=== PATIENT | male | born 1985 | race Caucasian/White ===

== ENCOUNTER 2024-03-04 09:23 | Inpatient (IN) | payer OTHER ==
--- NOTE | 2024-03-04 10:39 | ED ---
Skin/Abscess/FB HPI - General Chief complaint: Skin/Abscess/Foreign Body Stated complaint: Abrasion in groin area Time Seen by Provider: 03/04/24 10:36 Source: patient, family, RN notes reviewed Mode of arrival: ambulatory Limitations: no limitations - History of Present Illness Initial comments: 38 year-old male presenting with right groin abscess. States his PCP drained the abscess 2 days ago and started him on Bactrim. He states that the infection is behind his scrotum extending into his buttocks. He had a follow-up visit today at his PCP.They told him the infection had spread deeper into the groin and they wanted him to have a scan. Patient denies fevers, chills. Denies difficulty urinating, dysuria, urinary urgency or frequency. Denies testicular swelling or tenderness. - Related Data Allergies Allergy/AdvReac Type Severity Reaction Status Date / Time No Known Allergies Allergy Verified 03/04/24 09:31 Review of Systems ROS Statement: Those systems with pertinent positive or pertinent negative responses have been documented in the HPI. ROS Other: All systems not noted in ROS Statement are negative. Past Medical History Past Medical History: Diabetes Mellitus History of Any Multi-Drug Resistant Organisms: None Reported Additional Past Surgical History / Comment(s): eye surgery at 1yo Smoking Status: Current every day smoker Past Alcohol Use History: None Reported Past Drug Use History: None Reported General Exam - General Exam Comments Initial Comments: Visual Physical Exam Vital signs reviewed General: Well-appearing, nontoxic, no acute distress. Head: Normocephalic, atraumatic Eyes: PERRLA, EOMI ENT: Airway patent Chest: Nonlabored breathing Skin: No visual rash, normal skin tone Neuro: Alert and oriented 3 Musculoskeletal: No gross abnormalities Limitations: no limitations Head exam: Present: atraumatic, normocephalic, normal inspection Respiratory exam: Present: normal lung sounds bilaterally. Absent: respiratory distress, wheezes, rales, rhonchi, stridor Cardiovascular Exam: Present: regular rate, normal rhythm, normal heart sounds. Absent: systolic murmur, diastolic murmur, rubs, gallop, clicks GI/Abdominal exam: Present: soft, normal bowel sounds. Absent: distended, tenderness, guarding, rebound, rigid exam: Present: other (Sql Server Consultant present for exam. Erythematous, indurated abscess present behind scrotum extending into buttocks, approximately 5 x 3 inches. There is a incision present from previous I&D with no current drainage or packing) Course Vital Signs 03/04/24 03/04/24 03/04/24 09:29 11:30 12:54 Temperature 98 F 100.4 F H 99.4 F Pulse Rate 98 Respiratory 18 Rate Blood Pressure 147/82 O2 Sat by Pulse 98 Oximetry Medical Decision Making - Medical Decision Making I completed the quick note portion of this chart signed Katarina Lin PA-C Was pt. sent in by a medical professional or institution (, MILAN, ASSISTANT CONSTRUCTION SUPERINTENDENT, urgent care, hospital, or [facility]...) When possible be specific @ -Sent by PCP for worsening cellulitis status post incision and drainage Did you speak to anyone other than the patient for history (EMS, parent, family, police, friend...)? What history was obtained from this source @ -No Did you review nursing and triage notes (agree or disagree)? Why? @ -I reviewed and agree with nursing and triage notes Were old charts reviewed (outside hosp., previous admission, EMS record, old EKG, old radiological studies, urgent care reports/EKG's, [facility] records)? Report findings @ -No old charts were reviewed Differential Diagnosis (chest pain, altered mental status, abdominal pain women, abdominal pain men, vaginal bleeding, weakness, fever, dyspnea, syncope, headache, dizziness, GI bleed, back pain, seizure, CVA, palpatations, mental health, musculoskeletal)? @ -Cellulitis, abscess, jairo's gangrene, sepsis EKG interpreted by me (3pts min.). @ -None X-rays interpreted by me (1pt min.). @ -None done CT interpreted by me (1pt min.). @ -CT of pelvis revealed cellulitis along inferior medial right gluteal region approaching the posterior perineum. Irregular air collection in subcutaneous fat measuring 5 x 3.9 x 0.9 cm. No dominant fluid is seen. Consider infection with gas-forming organism versus a recent incision and drainage U/S interpreted by me (1pt. min.). @ -None done What testing was considered but not performed or refused? (CT, X-rays, U/S, labs)? Why? @ -None What meds were considered but not given or refused? Why? @ -None Did you discuss the management of the patient with other professionals (professionals i.e. , PA, ASSISTANT CONSTRUCTION SUPERINTENDENT, lab, RT, psych nurse, social worker clinical, nuclear equipment test engineer, teacher, seal delivery vehicle officer, housing case manager)? Give summary @ -Case discussed with Dr. Go from [facility] who accepts admission at this time for worsening cellulitis of gluteal region with sepsis. Infectious disease and surgery services consulted at this time. Was smoking cessation discussed for >3mins.? @ -No Was critical care preformed (if so, how long)? @ -Yes, 45 minutes Were there social determinants of health that impacted care today? How? (Homelessness, low income, unemployed, alcoholism, drug addiction, transportation, low edu. Level, literacy, decrease access to med. care, long-term, rehab)? @ -No Was there de-escalation of care discussed even if they declined (Discuss DNR or withdrawal of care, Hospice)? DNR status @ -No What co-morbidities impacted this encounter? (DM, HTN, Smoking, COPD, CAD, Cancer, CVA, ARF, Chemo, Hep., AIDS, mental health diagnosis, sleep apnea, morbid obesity)? @ -None Was patient admitted / discharged? Hospital course, mention meds given and route, prescriptions, significant lab abnormalities, going to OR and other pertinent info. @ -Patient was admitted. Patient was seen and evaluated for worsening right gluteal cellulitis status post incision and drainage by PCP 2 days ago. Patient is febrile on exam at 100.4 with heart rate of 98. Physical examination reveals indurated erythema extending from posterior to the scrotum into buttocks. White blood cell count is 18.8. Patient was started on IV fluids, IV vancomycin, and IV Zosyn immediately after arrival. CT of pelvis reveals cellulitis along inferior medial right gluteal region approaching the posterior perineum with irregular air collection and subcutaneous fat. Case discussed with Dr. Go from [facility] hospitalist who accepts admission at this time for cellulitis of gluteal region with sepsis with consults to infectious disease and surgery. Case discussed with Dr. Zuniga. Undiagnosed new problem with uncertain prognosis? @ -No Drug Therapy requiring intensive monitoring for toxicity (Heparin, Nitro, Insulin, Cardizem)? @ -No Were any procedures done? @ -No Diagnosis/symptom? @ -Cellulitis of right gluteal region Acute, or Chronic, or Acute on Chronic? @ -Acute Uncomplicated (without systemic symptoms) or Complicated (systemic symptoms)? @ -Complicated Side effects of treatment? @ -No Exacerbation, Progression, or Severe Exacerbation? @ -No Poses a threat to life or bodily function? How? (Chest pain, USA, NC, pneumonia, PE, COPD, DKA, ARF, appy, cholecystitis, CVA, Diverticulitis, Homicidal, Suicidal, threat to staff... and all critical care pts) @ -Yes, sepsis - Lab Data Result diagrams: 03/04/24 11:19 03/04/24 11:19 Lab Results 03/04/24 03/04/24 Range/Units 11:19 11:19 WBC 18.8 H (3.8-10.6) k/uL RBC 5.56 (4.30-5.90) m/uL Hgb 16.7 (13.0-17.5) gm/dL Hct 50.9 (39.0-53.0) % MCV 91.4 (80.0-100.0) fL MCH 30.0 (25.0-35.0) pg MCHC 32.9 (31.0-37.0) g/dL RDW 12.3 (11.5-15.5) % Plt Count 222 (150-450) k/uL MPV 9.9 Neutrophils % 86 % Lymphocytes % 5 % Monocytes % 6 % Eosinophils % 1 % Basophils % 0 % Neutrophils # 16.2 H (1.3-7.7) k/uL Lymphocytes # 0.9 L (1.0-4.8) k/uL Monocytes # 1.2 H (0-1.0) k/uL Eosinophils # 0.1 (0-0.7) k/uL Basophils # 0.0 (0-0.2) k/uL Sodium 130 L (137-145) mmol/L Potassium 4.4 (3.5-5.1) mmol/L Chloride 100 (98-107) mmol/L Carbon Dioxide 20 L (22-30) mmol/L Anion Gap 10 mmol/L BUN 14 (9-20) mg/dL Creatinine 0.85 (0.66-1.25) mg/dL Est GFR (CKD-EPI)AfAm >90 (>60 ml/min/1.73 sqM) Est GFR (CKD-EPI)NonAf >90 (>60 ml/min/1.73 sqM) Glucose 297 H (74-99) mg/dL Calcium 9.4 (8.4-10.2) mg/dL Total Bilirubin 1.0 (0.2-1.3) mg/dL AST 17 (17-59) U/L ALT 15 (4-49) U/L Alkaline Phosphatase 105 (38-126) U/L Total Protein 6.9 (6.3-8.2) g/dL Albumin 4.3 (3.5-5.0) g/dL Disposition Clinical Impression: Cellulitis, gluteal, right, Sepsis Disposition: ADMITTED IP TO THIS HOSP Referrals: Allison Salinas DO [Primary Care Provider] - 1-2 days Time of Disposition: 13:44
[2024-03-04] MEDS ORDERED: VANCOMYCIN IV PER PHARMACY 1 EACH MISC MISCELLANE PRN (11:19)
[2024-03-04 11:41] LABS: Basophils % (A) 0 %; Eosinophils # (A) 0.1 k/uL (0-0.7); Eosinophils % (A) 1 %; HCT 50.9 % (39.0-53.0); HGB 16.7 gm/dL (13.0-17.5); Lymphocytes # (A) 0.9 k/uL (1.0-4.8); Lymphocytes % (A) 5 %; MCHC 32.9 g/dL (31.0-37.0); MCV 91.4 fL (80.0-100.0); Mean Platelet Volume 9.9; Monocytes # (A) 1.2 k/uL (0-1.0); Monocytes % (A) 6 %; Neutrophils # (A) 16.2 k/uL (1.3-7.7); Neutrophils % (A) 86 %; Platelet Count 222 k/uL (150-450); RBC 5.56 m/uL (4.30-5.90); RDW 12.3 % (11.5-15.5); WBC 18.8 k/uL (3.8-10.6)
[2024-03-04] MEDS: PIPERACILLIN-TAZOBACTAM 3.375 GM in SODIUM CHLORIDE 0.9% 100 ML IVPB STA (11:46)
[2024-03-04] MEDS: SODIUM CHLORIDE 0.9% 1,000 ML IV STA (11:47)
[2024-03-04] MEDS: IBUPROFEN 600 MG TAB PO STA (11:47)
[2024-03-04 12:04] LABS: ALT 15 U/L (4-49); AST 17 U/L (17-59); African American GFR (CKD) >90 (>60 ml/min/1.73 sqM); Albumin 4.3 g/dL (3.5-5.0); Alkaline Phosphatase 105 U/L (38-126); Anion Gap 10 mmol/L; Blood Urea Nitrogen 14 mg/dL (9-20); Calcium 9.4 mg/dL (8.4-10.2); Carbon Dioxide 20 mmol/L (22-30); Chloride 100 mmol/L (98-107); Glucose 297 mg/dL (74-99); Non-African American GFR(CKD) >90 (>60 ml/min/1.73 sqM); Potassium 4.4 mmol/L (3.5-5.1); Sodium 130 mmol/L (137-145); Total Protein 6.9 g/dL (6.3-8.2)
[2024-03-04] MEDS: VANCOMYCIN 2,000 MG in SODIUM CHLORIDE 0.9% 500 ML 500 ML IVPB ONE (12:51)
--- NOTE | 2024-03-04 12:55 | CT ---
EXAMINATION TYPE: CT pelvis wo con DATE OF EXAM: 03/04/2024 COMPARISON: None HISTORY: 38-year-old male Right groin abscess TECHNIQUE: Contiguous axial scanning of the pelvis without IV contrast. Coronal and sagittal reconstr uctions performed. CT DLP: 763.6 mGycm Automated exposure control for dose reduction was used. FINDINGS: Visualized lower abdomen and pelvis shows no dilated small bowel. No lower abdominal or pelvic adenop athy seen. Normal appendix. Mild stool. No pericolonic inflammatory change. Bladder is urine distended. Prostate and highly enlarged at 4.2 cm wide. No abnormal fluid collection in the pelvis. There is skin thickening and subcutaneous fat stranding along the inferior medial right gluteal regio n approaching the posterior perineum. There is irregular air collection here measuring 3.9 cm cranioc audal by 5.0 cm AP by 9 mm wide but no dominant fluid seen. No abnormal air extending into the inguin al regions or scrotal sac at this time. IMPRESSION: CELLULITIS ALONG THE INFERIOR MEDIAL RIGHT GLUTEAL REGION APPROACHING THE POSTERIOR PERINEUM. AN IRRE GULAR AIR COLLECTION IN THE SUBCUTANEOUS FAT HERE MEASURES 5.0 X 3.9 X 0.9 CM. NO DOMINANT FLUID IS S EEN. Consider infection with gas-forming organism versus recent I&D. No abnormal air in the inguinal canal or scrotum.
[2024-03-04] MEDS ORDERED: NALOXONE 0.4 MG/ML 1 ML VIAL IV PRN (13:37)
[2024-03-04] MEDS ORDERED: ACETAMINOPHEN TAB 325 MG TAB PO PRN (13:37)
[2024-03-04] MEDS ORDERED: IBUPROFEN 400 MG TAB PO PRN (13:37)
[2024-03-04] MEDS ORDERED: DEXTROSE 50% SYRINGE 50 ML IVP PRN ×2 (15:02)
[2024-03-04] MEDS: SODIUM CHLORIDE 0.9% 1,000 ML IV SCH (16:05)
[2024-03-04 17:03] LABS: Glucose,Whole Blood 237 mg/dL (70-110)
[2024-03-04] MEDS: INSULIN ASPART (NovoLOG) 100 UNIT/ML VIAL SQ SCH (17:21)
[2024-03-04] MEDS: PIPERACILLIN-TAZOBACTAM 3.375 GM in SODIUM CHLORIDE 0.9% 100 ML IVPB SCH (17:35)
[2024-03-04] MEDS: AMPICILLIN-SULBACTAM 3 GM in SODIUM CHLORIDE 0.9% 100 ML IVPB SCH (17:51)
[2024-03-04 20:18] LABS: Glucose,Whole Blood 239 mg/dL (70-110)
--- NOTE | 2024-03-04 20:29 | HP ---
HISTORY AND PHYSICAL CHIEF COMPLAINT: Groin abrasion and abscess. HISTORY OF PRESENT ILLNESS: This is a 38-year-old gentleman with a past medical history of diabetes mellitus type 2, had an abscess drained 2 days ago by PCP on the right groin, and Bactrim was initiated, but because of lack of improvement and increased swelling, the patient is referred to [facility] and CT scan showed cellulitis and as well as some perineum involvement and irregular collections of subcutaneous fat also was noted. Infection with gas-forming organisms was also to be considered according to the patient. The patient was admitted for further evaluation and treatment. There is no history of any fever, rigors, or chills. PAST MEDICAL HISTORY: History of diabetes mellitus type 2, history of nicotine dependence. HOME MEDICATIONS: 1. Bactrim. 2. Ibuprofen. ALLERGIES: None. FAMILY HISTORY: No history of heart disease or strokes in the family. SOCIAL HISTORY: Current smoking. REVIEW OF SYSTEMS: Fourteen-point review is negative except as mentioned earlier. PHYSICAL EXAMINATION: VITAL SIGNS: Pulse is 77, blood pressure is 107/68, respirations 16. HEENT: Conjunctivae normal. NECK: No JVD. CARDIOVASCULAR: S1, S2. RESPIRATIONS: Breath sounds diminished at the bases. ABDOMEN: Soft, nontender. LEGS: No edema. No swelling. NERVOUS SYSTEM: No focal deficits. SKIN: No ulcer, rash, bleeding. JOINTS: No active deforming arthropathy. GROIN: Significant swelling and pain. No crepitus heard. LABORATORY DATA: WBC 18.8. ASSESSMENT: 1. Right inguinal abscess and perineal cellulitis, rule out necrotizing fasciitis with possible sepsis present on admission with failure of outpatient treatment. 2. Diabetes mellitus, type 2, uncontrolled. 3. Hyponatremia. 4. History of nicotine dependence. RECOMMENDATIONS AND DISCUSSION: This is a 38-year-old gentleman, who presented with multiple complex medical issues, we will monitor the patient closely. Continue the current medications. Broad-spectrum IV antibiotics initiated. I would recommend Infectious Disease and surgical consultations. Prognosis guarded because of multiple complex medical issues. Further recommendations to follow. See orders for further details. Monitor blood sugars closely. MMODL / IJN: [id number] /
[2024-03-04] MEDS: HEPARIN SODIUM,PORCINE 5,000 UNIT/ML 1 ML VIAL SQ SCH (20:38)
[2024-03-04] MEDS: VANCOMYCIN 1,750 MG in SODIUM CHLORIDE 0.9% 500 ML 500 ML IVPB SCH (21:20)
[2024-03-04] MEDS: HYDROmorphone 0.5 MG/0.5 ML SYRINGE IVP PRN (21:23)
--- NOTE | 2024-03-04 22:49 | P.CONS ---
History of Present Illness - Reason for Consult Consult date: 03/04/24 Cellulitis of right gluteal region Requesting physician: Katarina Lin - Chief Complaint Right groin area pain swelling redness x few days - History of Present Illness Patient is a 38-year-old male with a past medical history significant for diabetes mellitus, current everyday smoker started having the problem with swelling to the right groin area patient mention he noticed to have a hair follicle/pimple that subsequent noticed to have increasing swelling or redness to the right groin area for the patient did follow-up with his primary care physician the area was drained cultures were obtained and the patient was started on Bactrim DS patient did have a follow-up visit with the PCP today and noticed to have worsening swelling redness for the patient was advised to go to the hospital patient complaining of some chills and did have a low-grade fever 100.4 F on arrival to the hospital patient be complaining of pain to the right groin area describing it to be sharp moderate intensity without any radiation with associated swelling redness and some drainage patient denies having any headache or URI symptoms no chest pain shortness of breath or cough no nausea vomiting no abdominal pain and no diarrhea patient did have a white count of 18.8 creatinine 0.85 electrolytes are normal liver enzymes are normal patient was started on vancomycin and Zosyn infectious disease was consulted for further management of antibiotic therapy Review of Systems Positive point and negatives has been mentioned in the HPI, complete review of systems was performed and all other systems are negative Past Medical History Past Medical History: Diabetes Mellitus History of Any Multi-Drug Resistant Organisms: None Reported Additional Past Surgical History / Comment(s): eye surgery at 1yo Smoking Status: Current every day smoker Past Alcohol Use History: None Reported Past Drug Use History: None Reported Medications and Allergies Home Medications Medication Instructions Recorded Confirmed Type HYDROcodone/APAP 5-325MG [[place] 1 each PO Q6HR PRN #12 tab 03/08/24 Rx 5-325] Ibuprofen [Motrin Ib] 400 mg PO Q6H PRN #0 03/08/24 03/04/24 Rx Insulin Glargine,Hum.rec.anlog 15 units SQ BID #2 each 03/08/24 Rx [Lantus Solostar Pen] ceFAZolin [Kefzol] 2 gm IVP Q8HR 14 Days each 03/08/24 Rx metroNIDAZOLE [Flagyl] 500 mg PO TID #42 tab 03/08/24 Rx Allergies Allergy/AdvReac Type Severity Reaction Status Date / Time No Known Allergies Allergy Verified 03/04/24 14:11 Physical Exam Vitals: Vital Signs Temp Pulse Resp BP Pulse Ox 03/04/24 14:13 98.2 F 77 16 107/68 97 03/04/24 12:54 99.4 F 03/04/24 11:30 100.4 F H 03/04/24 09:29 98 F 98 18 147/82 98 Intake and Output 03/03/24 03/04/24 03/04/24 22:59 06:59 14:59 Other: Weight 117.027 kg GENERAL DESCRIPTION: Middle-aged male lying in bed, no distress. No tachypnea or accessory muscle of respiration use. HEENT: Shows Pallor , no scleral icterus. Oral mucous membrane is dry. No pharyngeal erythema or thrush NECK: Trachea central, no thyromegaly. LUNGS: Unlabored breathing. Clear to auscultation anteriorly. No wheeze or crackle. HEART: S1, S2, regular rate and rhythm. No loud murmur ABDOMEN: Soft, no tenderness , guarding or rigidity, right groin did have area of induration swelling redness and purulent drainage which was cultured EXTREMITIES: No edema of feet. SKIN: No rash, no masses palpable. NEUROLOGICAL: The patient is awake, alert, oriented x3, mood and affect normal. Results CBC & Chem 7: 03/07/24 04:46 03/07/24 04:46 Labs: Abnormal Lab Results - Last 24 Hours (Table) 03/04/24 03/04/24 Range/Units 11:19 11:19 WBC 18.8 H (3.8-10.6) k/uL Neutrophils # 16.2 H (1.3-7.7) k/uL Lymphocytes # 0.9 L (1.0-4.8) k/uL Monocytes # 1.2 H (0-1.0) k/uL Sodium 130 L (137-145) mmol/L Carbon Dioxide 20 L (22-30) mmol/L Glucose 297 H (74-99) mg/dL Assessment and Plan (1) Abscess of right groin Status: Acute Code(s): L02.214 - CUTANEOUS ABSCESS OF GROIN SNOMED Code(s): 07886443 (2) Cellulitis, gluteal, right Status: Acute Code(s): L03.317 - CELLULITIS OF BUTTOCK SNOMED Code(s): 37497215 Plan: 1patient with right groin abscess that has been drained by the PCP and failed to respond to the outpatient Bactrim DS therapy patient did have a CT with evidence of small abscess to the right groin area will need to cover for resistant gram-positive such as MRSA to be the likely pathogen, gram-negative infection not entirely excluded 2-patient benefit from surgical evaluation and drainage of this abscess 3-local culture has been obtained to guide further antibiotic therapy both aerobic and anaerobic 4-vancomycin pharmacy to dose target trough of 15 while watching kidney function and Vanco trough closely however discontinue Zosyn start the patient on Unasyn decrease risk of nephrotoxicity Question concern answered We will follow on clinical condition and cultures to further adjust medication if needed Thank you for this consultation we will follow the patient along with you Dictation was produced using [employer] dictation software. please excuse any grammatical, word or spelling errors. Time with Patient: Greater than 30
[2024-03-05 07:17] LABS: Glucose,Whole Blood 219 mg/dL (70-110)
[2024-03-05 07:43] LABS: Basophils % (A) 0 %; Eosinophils # (A) 0.2 k/uL (0-0.7); Eosinophils % (A) 2 %; HCT 45.5 % (39.0-53.0); HGB 14.6 gm/dL (13.0-17.5); Lymphocytes # (A) 1.3 k/uL (1.0-4.8); Lymphocytes % (A) 12 %; MCH 29.6 pg (25.0-35.0); MCHC 32.2 g/dL (31.0-37.0); Mean Platelet Volume 9.3; Monocytes # (A) 0.8 k/uL (0-1.0); Monocytes % (A) 7 %; Neutrophils # (A) 8.3 k/uL (1.3-7.7); Neutrophils % (A) 75 %; Platelet Count 188 k/uL (150-450); RBC 4.94 m/uL (4.30-5.90); RDW 12.4 % (11.5-15.5)
[2024-03-05 07:46] LABS: ALT 14 U/L (4-49); AST 15 U/L (17-59); African American GFR (CKD) >90 (>60 ml/min/1.73 sqM); Albumin 3.3 g/dL (3.5-5.0); Albumin/Globulin Ratio 1.4; Alkaline Phosphatase 74 U/L (38-126); Anion Gap 7 mmol/L; Blood Urea Nitrogen 8 mg/dL (9-20); Calcium 8.3 mg/dL (8.4-10.2); Carbon Dioxide 21 mmol/L (22-30); Chloride 106 mmol/L (98-107); Globulin 2.3 g/dL; Glucose 210 mg/dL (74-99); Non-African American GFR(CKD) >90 (>60 ml/min/1.73 sqM); Potassium 3.9 mmol/L (3.5-5.1); Sodium 134 mmol/L (137-145); Total Bilirubin 0.9 mg/dL (0.2-1.3); Total Protein 5.6 g/dL (6.3-8.2)
[2024-03-05 12:01] LABS: Glucose,Whole Blood 312 mg/dL (70-110)
--- NOTE | 2024-03-05 14:53 | P.GSCN ---
History of Present Illness Consult date: 03/05/24 Reason for Consult: Perineal Abscess History of present illness: Patient is a 38 year old male with a PMH of NIDDM who presents with a one week history of right perineal/buttocck swelling and erythema. Patient states that he has had small abscesses in the past but nothing of this size. He states that for the past 5-6 days he has had progressive swelling and induration of his right buttock. He states that he had gone to his PCP 3 days prior to admission who performed an incision and drainage in clinic. He had presented to his PCP on 03/04/24 for reevaluation where he has found to have progression of his perineal abscess and was recommended to present to the hospital for IV abx. CT obtained in the ED shows evidence of induration and inflammation without evidence of fluid collection. No F/C. No SOB or CP. He states that his wound has purulent drainage. No SOB or CP. Admits to Bm and flatus. No worsening pain with BM. No melena or hemtochezia. No dysuria or hematuria. Review of Systems Negative except for as stated above Past Medical History Past Medical History: Diabetes Mellitus Additional Past Medical History / Comment(s): pre diabetes History of Any Multi-Drug Resistant Organisms: None Reported Additional Past Surgical History / Comment(s): eye surgery at 1yo Past Anesthesia/Blood Transfusion Reactions: No Reported Reaction Smoking Status: Current every day smoker Past Alcohol Use History: None Reported Past Drug Use History: None Reported Medications and Allergies Home Medications Medication Instructions Recorded Confirmed Type Ibuprofen [Motrin Ib] 200 - 600 mg PO Q8H PRN 03/04/24 03/04/24 History Sulfamethoxazole/Trimethoprim 1 tab PO BID 03/04/24 03/04/24 History [Bactrim DS 800-160 mg] Allergies Allergy/AdvReac Type Severity Reaction Status Date / Time No Known Allergies Allergy Verified 03/04/24 14:11 Surgical - Exam Vital Signs Temp Pulse Resp BP Pulse Ox 98 F 98 18 147/82 98 03/04/24 09:29 03/04/24 09:29 03/04/24 09:29 03/04/24 09:29 03/04/24 09:29 - General Gen: AxO, NAD Pulm: non-labored respirations Abd: soft. non-tender, non-distended. No guarding/rebound/rigidity Rectal: perineum wound seen with induration. Incision and drainage site open with purulent drainage. Minimally tender to palpation. No additional area of fluctuence. No creipitus appreciated. Results - Labs 03/05/24 07:22 03/05/24 07:22 Abnormal Lab Results - Last 24 Hours (Table) 03/04/24 03/04/24 03/05/24 Range/Units 17:02 20:16 07:15 WBC (3.8-10.6) k/uL Neutrophils # (1.3-7.7) k/uL Sodium (137-145) mmol/L Carbon Dioxide (22-30) mmol/L BUN (9-20) mg/dL Glucose (74-99) mg/dL POC Glucose (mg/dL) 237 H 239 H 219 H (70-110) mg/dL Hemoglobin A1c (<=6.0) % Calcium (8.4-10.2) mg/dL AST (17-59) U/L Total Protein (6.3-8.2) g/dL Albumin (3.5-5.0) g/dL 03/05/24 03/05/24 03/05/24 Range/Units 07:22 07:22 07:22 WBC 11.0 H (3.8-10.6) k/uL Neutrophils # 8.3 H (1.3-7.7) k/uL Sodium 134 L (137-145) mmol/L Carbon Dioxide 21 L (22-30) mmol/L BUN 8 L (9-20) mg/dL Glucose 210 H (74-99) mg/dL POC Glucose (mg/dL) (70-110) mg/dL Hemoglobin A1c 11.5 H (<=6.0) % Calcium 8.3 L (8.4-10.2) mg/dL AST 15 L (17-59) U/L Total Protein 5.6 L (6.3-8.2) g/dL Albumin 3.3 L (3.5-5.0) g/dL 03/05/24 Range/Units 12:00 WBC (3.8-10.6) k/uL Neutrophils # (1.3-7.7) k/uL Sodium (137-145) mmol/L Carbon Dioxide (22-30) mmol/L BUN (9-20) mg/dL Glucose (74-99) mg/dL POC Glucose (mg/dL) 312 H (70-110) mg/dL Hemoglobin A1c (<=6.0) % Calcium (8.4-10.2) mg/dL AST (17-59) U/L Total Protein (6.3-8.2) g/dL Albumin (3.5-5.0) g/dL Diabetes panel 03/05/24 03/05/24 Range/Units 07:22 07:22 Sodium 134 L (137-145) mmol/L Potassium 3.9 (3.5-5.1) mmol/L Chloride 106 (98-107) mmol/L Carbon Dioxide 21 L (22-30) mmol/L BUN 8 L (9-20) mg/dL Creatinine 0.71 (0.66-1.25) mg/dL Glucose 210 H (74-99) mg/dL Hemoglobin A1c 11.5 H (<=6.0) % Calcium 8.3 L (8.4-10.2) mg/dL AST 15 L (17-59) U/L ALT 14 (4-49) U/L Alkaline Phosphatase 74 (38-126) U/L Total Protein 5.6 L (6.3-8.2) g/dL Albumin 3.3 L (3.5-5.0) g/dL Calcium panel 03/05/24 Range/Units 07:22 Calcium 8.3 L (8.4-10.2) mg/dL Albumin 3.3 L (3.5-5.0) g/dL Pituitary panel 03/05/24 Range/Units 07:22 Sodium 134 L (137-145) mmol/L Potassium 3.9 (3.5-5.1) mmol/L Chloride 106 (98-107) mmol/L Carbon Dioxide 21 L (22-30) mmol/L BUN 8 L (9-20) mg/dL Creatinine 0.71 (0.66-1.25) mg/dL Glucose 210 H (74-99) mg/dL Calcium 8.3 L (8.4-10.2) mg/dL Adrenal panel 03/05/24 Range/Units 07:22 Sodium 134 L (137-145) mmol/L Potassium 3.9 (3.5-5.1) mmol/L Chloride 106 (98-107) mmol/L Carbon Dioxide 21 L (22-30) mmol/L BUN 8 L (9-20) mg/dL Creatinine 0.71 (0.66-1.25) mg/dL Glucose 210 H (74-99) mg/dL Calcium 8.3 L (8.4-10.2) mg/dL Total Bilirubin 0.9 (0.2-1.3) mg/dL AST 15 L (17-59) U/L ALT 14 (4-49) U/L Alkaline Phosphatase 74 (38-126) U/L Total Protein 5.6 L (6.3-8.2) g/dL Albumin 3.3 L (3.5-5.0) g/dL Assessment and Plan Assessment: Patient is a 38M with one week history of right groin/perineal induration and purulent drainage consistent with abscess without evidence of necrotizing fasiitits. Plan: -Diet as tolerated -IVF hydration -IV abx -Continue local wound care -Ct independently reviewed; no area of fluid seen as target for incision and drainage. Subcutaneous air seen secondary to recent I/D and open wound -PRN pain control -No acute surgical intervention Romel Rees MD General Surgery
[2024-03-05] MEDS: INSULIN DETEMIR (LEVEMIR) 100 UNIT/ML SYR SQ SCH (15:46)
[2024-03-05 17:05] LABS: Glucose,Whole Blood 234 mg/dL (70-110)
[2024-03-05 19:58] LABS: Glucose,Whole Blood 231 mg/dL (70-110)
--- NOTE | 2024-03-05 23:50 | PN ---
PROGRESS NOTE DATE OF SERVICE: 03/05/2024 SUBJECTIVE: This is a 38-year-old gentleman, who was admitted with right inguinal abscess, is being closely monitored. The patient also had diabetes mellitus type 2. Hemoglobin A1c is unknown. CAT scan of the pelvis was noted. PAST MEDICAL HISTORY: Reviewed. REVIEW OF SYSTEMS: A 14-point review is negative except as mentioned earlier. CURRENT MEDICATIONS: Reviewed and include Unasyn, dose and rest of medications reviewed. PHYSICAL EXAMINATION: VITAL SIGNS: Pulse is 79, blood pressure 130/70, respirations 20. HEENT: Conjunctivae normal. NECK: No JVD. CARDIOVASCULAR: S1, S2. RESPIRATIONS: Breath sounds diminished at the bases. ABDOMEN: Soft. Right inguinal area abscess, cellulitis. Tenderness present. LABORATORY DATA: WBC 11. Rest of the labs are noted. ASSESSMENT: 1. Right inguinal abscess with perineal cellulitis with possible sepsis present and rule out necrotizing fasciitis with failure of outpatient treatment. 2. Diabetes mellitus, type 2, uncontrolled. 3. Hyponatremia. 4. History of nicotine dependence. 5. Elevated WBC. RECOMMENDATIONS AND DISCUSSION: This is a 38-year-old gentleman, who presented with multiple complex medical issues. We will monitor the patient closely. Continue current medications and continue symptomatic treatment. Hemoglobin A1c is 11.5. We will continue to monitor the patient. We will start long-acting insulin. The patient will require most likely long- acting insulin. Continue with antibiotics. Surgical evaluation. Guarded prognosis. Further recommendations to follow. See orders for details. MMODL / IJN: [id number] /
[2024-03-06] MEDS: VANCOMYCIN TROUGH DUE 1 EACH MISC MISCELLANE ONE (05:28)
[2024-03-06 07:17] LABS: Glucose,Whole Blood 123 mg/dL (70-110)
[2024-03-06 09:18] LABS: Basophils # (A) 0.06 X 10*3/uL (0.00-0.10); Basophils % (A) 0.6 %; Eosinophils # (A) 0.21 X 10*3/uL (0.04-0.35); Eosinophils % (A) 2.2 %; HCT 41.1 % (39.6-50.0); HGB 13.5 g/dL (13.0-17.0); Lymphocytes # (A) 1.35 X 10*3/uL (0.90-5.00); Lymphocytes % (A) 13.8 %; MCH 30.3 pg (27.0-32.0); MCHC 32.8 g/dL (32.0-37.0); MCV 92.2 FL (80.0-97.0); Monocytes # (A) 1.14 X 10*3/uL (0.20-1.00); Monocytes % (A) 11.7 %; NRBC Per 100 WBC 0 X 10*3/uL (0.00-0.01); Neutrophils # (A) 6.96 X 10*3/uL (1.80-7.70); Neutrophils % (A) 71.3 %; Platelet Count 215 X 10*3/uL (140-440); RBC 4.46 X 10*6/uL (4.40-5.60); RDW 12.2 % (11.5-14.5); WBC 9.76 X 10*3/uL (4.50-10.00)
[2024-03-06 09:19] LABS: ALT 12 U/L (10-49); AST 13 U/L (14-35); Albumin 3.5 g/dL (3.8-4.9); Albumin/Globulin Ratio 1.94 Ratio (1.60-3.17); Alkaline Phosphatase 73 U/L (41-126); BUN/Creat Ratio 8.25 Ratio (12.00-20.00); Blood Urea Nitrogen 6.6 mg/dL (9.0-27.0); Calcium 8.9 mg/dL (8.7-10.3); Carbon Dioxide 24.2 mmol/L (21.6-31.8); Chloride 105 mmol/L (96-109); Globulin 1.8 g/dL (1.6-3.3); Glucose 121 mg/dL (70-110); Potassium 3.9 mmol/L (3.5-5.5); Sodium 140 mmol/L (135-145); Total Bilirubin 0.3 mg/dL (0.3-1.2); Total Protein 5.3 g/dL (6.2-8.2)
--- NOTE | 2024-03-06 11:00 | P.PN ---
Subjective Progress Note Date: 03/05/24 Principal diagnosis: Reason for follow-up is right groin abscess Patient is a 38-year-old male with a past medical history of again for diabetes melitis presenting to the hospital with right groin swelling induration that has been draining outpatient by the PCP failed respond to the oral Bactrim DS. On today's evaluation that is 03/05/2024, Patient is afebrile patient is currently on room air and denies having any shortness of breath, the patient denies any chest pain or cough, the patient denies any nausea vomiting did not have any abdominal pain and no diarrhea right groin swelling redness slightly decreased did have some drainage. Patient white count is down to 11,000 creatinine 0.71 cultures currently pending Objective - Vital Signs Vital signs: Vital Signs Temp 98.6 F 03/05/24 07:17 Pulse 79 03/05/24 07:17 Resp 20 03/05/24 07:17 BP 130/78 03/05/24 07:17 Pulse Ox 96 03/05/24 07:17 FiO2 Intake & Output 03/04/24 03/05/24 03/05/24 18:59 06:59 18:59 Weight 117.027 kg Other: Voiding Method Toilet # Voids 0 - Exam GENERAL DESCRIPTION: Middle-age male lying in bed in no distress RESPIRATORY SYSTEM: Unlabored breathing , decreased breath sounds at bases HEART: S1 S2 regular rate and rhythm , ABDOMEN: Soft , no tenderness Right groin did have an area of induration swelling and redness and some purulent drainage EXTREMITIES: No edema feet - Labs CBC & Chem 7: 03/06/24 05:13 03/06/24 05:13 Labs: Abnormal Lab Results - Last 24 Hours (Table) 03/04/24 03/04/24 03/04/24 Range/Units 11:19 17:02 20:16 WBC (3.8-10.6) k/uL Neutrophils # (1.3-7.7) k/uL Sodium 130 L (137-145) mmol/L Carbon Dioxide 20 L (22-30) mmol/L BUN (9-20) mg/dL Glucose 297 H (74-99) mg/dL POC Glucose (mg/dL) 237 H 239 H (70-110) mg/dL Calcium (8.4-10.2) mg/dL AST (17-59) U/L Total Protein (6.3-8.2) g/dL Albumin (3.5-5.0) g/dL 03/05/24 03/05/24 03/05/24 Range/Units 07:15 07:22 07:22 WBC 11.0 H (3.8-10.6) k/uL Neutrophils # 8.3 H (1.3-7.7) k/uL Sodium 134 L (137-145) mmol/L Carbon Dioxide 21 L (22-30) mmol/L BUN 8 L (9-20) mg/dL Glucose 210 H (74-99) mg/dL POC Glucose (mg/dL) 219 H (70-110) mg/dL Calcium 8.3 L (8.4-10.2) mg/dL AST 15 L (17-59) U/L Total Protein 5.6 L (6.3-8.2) g/dL Albumin 3.3 L (3.5-5.0) g/dL Assessment and Plan (1) Abscess of right groin Current Visit: Yes Status: Acute Code(s): L02.214 - CUTANEOUS ABSCESS OF GROIN SNOMED Code(s): 15781252 Plan: 1patient with right groin abscess that has been drained by the PCP and failed to respond to the outpatient Bactrim DS therapy patient did have a CT with evidence of small abscess to the right groin area will need to cover for res istant gram-positive such as MRSA to be the likely pathogen, gram-negative infection not entirely excluded 2-patient currently waiting for surgical evaluation and possible drainage of this abscess 3-local culture has been obtained to guide further antibiotic therapy and currently pending 4-patient to continue with the vancomycin and Unasyn while waiting for the culture to finalize Question concerns were answered Dictation was produced using [employer] dictation software. please excuse any grammatical, word or spelling errors. Time with Patient: Less than 30
[2024-03-06 12:00] LABS: Glucose,Whole Blood 145 mg/dL (70-110)
--- NOTE | 2024-03-06 13:07 | P.PN ---
Subjective Progress Note Date: 03/06/24 patient feels better. He states he is less pain and swelling in his right gluteal area. On exam vital signs appear stable. Abdomen is soft. Right gluteal induration is decreased compared to yesterday. Resolving perirectal abscess. Patient can receive IV antibiotics. Objective - Vital Signs Vital signs: Vital Signs Temp 98.1 F 03/06/24 07:17 Pulse 70 03/06/24 07:17 Resp 18 03/06/24 07:17 BP 127/84 03/06/24 07:17 Pulse Ox 95 03/06/24 07:17 FiO2 Intake & Output 03/05/24 03/06/24 03/06/24 18:59 06:59 18:59 Intake Total 1400 Balance 1400 Intake: Intake, IV Titration 900 Amount Ampicillin-Sulbactam 3 gm 200 In Sodium Chloride 0.9% 100 ml @ 200 mls/hr IVPB Q6HR YUSEF Rx#:[id number] Sodium Chloride 0.9% 1, 600 000 ml @ 70 mls/hr IV . [id number] YUSEF Rx#:[id number] Vancomycin 1,750 mg In 100 Sodium Chloride 0.9% 500 ml 500 ml @ 167 mls/hr IVPB Q8H YUSEF Rx#: [id number] Oral 500 Other: Voiding Method Toilet # Voids 2 3 - Labs CBC & Chem 7: 03/06/24 05:13 03/06/24 05:13 Labs: Abnormal Lab Results - Last 24 Hours (Table) 03/05/24 03/05/24 03/05/24 Range/Units 07:22 17:04 19:48 Monocytes # (0.20-1.00) X 10*3/uL BUN (9.0-27.0) mg/dL BUN/Creatinine Ratio (12.00-20.00) Ratio Glucose (70-110) mg/dL POC Glucose (mg/dL) 234 H 231 H (70-110) mg/dL Hemoglobin A1c 11.5 H (<=6.0) % AST (14-35) U/L Total Protein (6.2-8.2) g/dL Albumin (3.8-4.9) g/dL 03/06/24 03/06/24 03/06/24 Range/Units 05:13 05:13 07:16 Monocytes # 1.14 H (0.20-1.00) X 10*3/uL BUN 6.6 L (9.0-27.0) mg/dL BUN/Creatinine Ratio 8.25 L (12.00-20.00) Ratio Glucose 121 H (70-110) mg/dL POC Glucose (mg/dL) 123 H (70-110) mg/dL Hemoglobin A1c (<=6.0) % AST 13 L (14-35) U/L Total Protein 5.3 L (6.2-8.2) g/dL Albumin 3.5 L (3.8-4.9) g/dL 03/06/24 Range/Units 11:58 Monocytes # (0.20-1.00) X 10*3/uL BUN (9.0-27.0) mg/dL BUN/Creatinine Ratio (12.00-20.00) Ratio Glucose (70-110) mg/dL POC Glucose (mg/dL) 145 H (70-110) mg/dL Hemoglobin A1c (<=6.0) % AST (14-35) U/L Total Protein (6.2-8.2) g/dL Albumin (3.8-4.9) g/dL Microbiology - Last 24 Hours (Table) 03/04/24 16:49 Wound Culture - Preliminary Groin Strep agalactiae - (group b) 03/04/24 11:40 Blood Culture - Preliminary Blood 03/04/24 11:20 Blood Culture - Preliminary Blood
[2024-03-06] MEDS: HYDROcodone/APAP 5-325MG 1 EACH TAB PO PRN (14:37)
[2024-03-06 17:09] LABS: Glucose,Whole Blood 143 mg/dL (70-110)
[2024-03-06 20:49] LABS: Glucose,Whole Blood 226 mg/dL (70-110)
--- NOTE | 2024-03-07 01:38 | PN ---
PROGRESS NOTE DATE OF SERVICE: 03/06/2024 SUBJECTIVE: This 38-year-old gentleman admitted with right inguinal and perineal abscess with failure of outpatient treatment, is being closely monitored. No chest pain, no palpitations. The patient had fluctuant swelling which is extending posteriorly. The blood sugar has been controlled by Lantus. OBJECTIVE: VITAL SIGNS: Pulse is 72, blood pressuren, respirations 18. CHEST: No rhonchi, no crackles. ABDOMEN: Soft, nontender. : Right inguinal and perineal abscess present. LABORATORY DATA: Reviewed. White count is normal. ASSESSMENT: 1. Right inguinal abscess and perineal cellulitis with possible sepsis present on admission with failure of outpatient treatment. 2. Diabetes mellitus type 2, uncontrolled. 3. Hyponatremia. 4. History of nicotine dependence. 5. Elevated WBC, improved. RECOMMENDATIONS: Recommended to continue current medications, continue symptomatic treatment. Otherwise monitor blood sugars closely. Closely follow with surgery, Infectious Disease, empiric antibiotics. Guarded prognosis. Further recommendations to follow. If the patient develops fluctuant mass, the patient might require incision and drainage per surgery. MMODL / IJN: [id number] / SONALI
[2024-03-07 05:49] LABS: African American GFR (CKD) >90 (>60 ml/min/1.73 sqM); Anion Gap 4 mmol/L; Blood Urea Nitrogen 5 mg/dL (9-20); Calcium 8.8 mg/dL (8.4-10.2); Carbon Dioxide 28 mmol/L (22-30); Chloride 105 mmol/L (98-107); Glucose 122 mg/dL (74-99); Non-African American GFR(CKD) >90 (>60 ml/min/1.73 sqM); Sodium 137 mmol/L (137-145)
[2024-03-07 07:14] LABS: Glucose,Whole Blood 118 mg/dL (70-110)
[2024-03-07 08:46] LABS: HCT 41.7 % (39.6-50.0); HGB 13.8 g/dL (13.0-17.0); MCH 30.1 pg (27.0-32.0); MCHC 33.1 g/dL (32.0-37.0); Mean Platelet Volume 11.6 FL (9.5-12.2); NRBC Per 100 WBC 0 X 10*3/uL (0.00-0.01); Platelet Count 240 X 10*3/uL (140-440); RBC 4.58 X 10*6/uL (4.40-5.60); RDW 12.1 % (11.5-14.5)
[2024-03-07 08:47] LABS: Basophils # (A) 0.05 X 10*3/uL (0.00-0.10); Basophils % (A) 0.5 %; Eosinophils # (A) 0.28 X 10*3/uL (0.04-0.35); Eosinophils % (A) 2.6 %; Lymphocytes # (A) 1.55 X 10*3/uL (0.90-5.00); Lymphocytes % (A) 14.5 %; Monocytes # (A) 1.01 X 10*3/uL (0.20-1.00); Monocytes % (A) 9.4 %; Neutrophils # (A) 7.76 X 10*3/uL (1.80-7.70); Neutrophils % (A) 72.5 %
[2024-03-07 11:51] LABS: Glucose,Whole Blood 147 mg/dL (70-110)
--- NOTE | 2024-03-07 12:05 | P.PN ---
Subjective Progress Note Date: 03/07/24 This a 38-year-old gentleman admitted with right groin abscess, diabetes mellitus, failed outpatient treatment. Evaluated by infectious disease and placed currently on vancomycin and Unasyn, creatinine 0.7. Wound culture finalized, reporting strep agalactiae,-group B. Evaluated by surgery with no surgical intervention recommended. Continues to have some induration with inflammation, tenderness-reports "sore with pale yellow drainage." Alternating ice and heat compresses. positive diet intake, denies nausea vomiting diarrhea or abdominal pain. Minimal nausea yesterday, resolved. Denies chills or sweats. Afebrile, WBC 10.7. Blood sugars better controlled Objective - Vital Signs Vital signs: Vital Signs Temp 97.7 F 03/07/24 07:12 Pulse 68 03/07/24 07:12 Resp 18 03/07/24 07:12 BP 120/79 03/07/24 07:12 Pulse Ox 95 03/07/24 07:12 FiO2 Intake & Output 03/06/24 03/07/24 03/07/24 18:59 06:59 18:59 Intake Total 480 Balance 480 Intake: Oral 480 Other: Voiding Method Toilet # Voids 3 3 - Exam PHYSICAL EXAM: VITAL SIGNS: [As above] GENERAL: Alert and oriented x 3, sitting up at side of bed, no acute distress. HEENT: Normocephalic, conjunctivae normal. eyes normal. Conjunctiva normal,MMM. NECK: Supple, no JVD. CARDIOVASCULAR: S1, S2 regular. No murmur RESPIRATION: Unlabored, equal air entry, clear to auscultation. ABDOMEN: Soft, nontender . No guarding. +BS SKIN: Right groin, positive induration, inflammation, pink- drainage currently serous LEGS: No edema. no swelling PSYCHIATRY: Alert and oriented X3, mood and affect normal. NERVOUS SYSTEM: Cranial N 2-12 grossly normal. No focal deficits. Strength and sensation grossly intact. - Labs CBC & Chem 7: 03/07/24 04:46 03/07/24 04:46 Labs: Abnormal Lab Results - Last 24 Hours (Table) 03/06/24 03/06/24 03/06/24 Range/Units 11:58 17:08 20:47 WBC (4.50-10.00) X 10*3/uL Immature Gran # (0.00-0.04) X 10*3/uL Neutrophils # (1.80-7.70) X 10*3/uL Monocytes # (0.20-1.00) X 10*3/uL BUN (9-20) mg/dL Glucose (74-99) mg/dL POC Glucose (mg/dL) 145 H 143 H 226 H (70-110) mg/dL 03/07/24 03/07/24 03/07/24 Range/Units 04:46 04:46 07:13 WBC 10.70 H (4.50-10.00) X 10*3/uL Immature Gran # 0.05 H (0.00-0.04) X 10*3/uL Neutrophils # 7.76 H (1.80-7.70) X 10*3/uL Monocytes # 1.01 H (0.20-1.00) X 10*3/uL BUN 5 L (9-20) mg/dL Glucose 122 H (74-99) mg/dL POC Glucose (mg/dL) 118 H (70-110) mg/dL Microbiology - Last 24 Hours (Table) 03/04/24 16:49 Gram Stain - Final Groin Wound Culture - Final Strep agalactiae - (group b) 03/04/24 11:40 Blood Culture - Preliminary Blood 03/04/24 11:20 Blood Culture - Preliminary Blood Assessment and Plan Assessment: Right groin abscess, failed outpatient I&D/antibiotics. Wound culture reporting strep atelectatic group B Diabetes mellitus type II, hyperglycemic, better controlled, A1c 11.5, further diabetic education outpatient in clinic with PCP Morbid obesity, BMI 32 Hyponatremia, resolved Ongoing nicotine dependence Plan: Continue on current medication regimen ,monitoring and symptomatic treatment. Evaluated by surgery with no surgical intervention recommended at this time. Continue wound care and antibiotics as per ID.wound culture finalized, discharge planning in progress clearance and final DC antibiotics per ID. Smoking sensation reinforced. The impression and plan of care has been dictated as directed. : I performed a history and examination of this patient, discussed the same with the dictator. I agree with the dictator's note ,documented as a scribe. Any additional findings or plans will be noted.
--- NOTE | 2024-03-07 14:02 | CDI ---
Documentation Clarification Form Date: 03/07/2024 01:35:36 PM From: Melinda Roy RN CCDS Phone: [phone] Admit Date: 03/04/2024 02:23:00 PM Patient Name: Jc Araya Visit Number: [id number] Discharge Date: ATTENTION: The Clinical Documentation Specialists (CDI) and [facility] Coding Staff appreciate your assistance in clarifying documentation. Please respond to the clarification below the line at the bottom and electronically sign. The CDI & [facility] Coding staff will review the response and follow-up if needed. Please note: Queries are made part of the Legal Health Record. If you have any questions, please contact the author of this message via ITS. Irina YOUNG The patient has possible sepsis. Based on this information and the findings below, is there an additional diagnosis that is clinically appropriate for this patient? History/Risk Factors: 38-year-old male presents to the ED after PCP drained a right groin abscess that is infected that has extended into his buttocks. Medical history: DM2 and nicotine dependence. 03/04 HP. Clinical Indicators: WBC, 03/04: 18.8 Blood cultures 03/06: No growth after 48 hours. Wound Culture, 03/06 : Strep agalactiae (group b) Vitals signs: 03/04 09:29 B/P 147/82; HR 98; Temp 98 F oral ; RR 18; SpO2 98% room air. Temp 03/04 11:30 100.4F Temporal Treatment: ID Consult, 03/04: Patient with right groin abscess that has been drained by the PCP and failed to respond to the outpatient Bactrim DS therapy patient did have a CT with evidence of small abscess to the right groin area will need to cover for resistant gram-positive such as MRSA to be the likely pathogen, gram-negative infection not entirely excluded Antibiotics: 03/04 Ampicillin 3gm IVPB Q6H; 03/04 Zosyn 3.375gm IVPB x 1; 03/04 Zoysn 3.375gm IVPB Q8H; 03/04 Vancomycin 2,000mg IVPB. IV Bolus: 03/04 0.9ns 1L IV bolus Is there an additional diagnosis that is clinically appropriate for this patient? [ ] Sepsis, present on admission confirmed, remains under treatment [ ] Sepsis present on admission confirmed, resolved. [ ] Sepsis Ruled out [ ] Other, please specify [ ] Unable to determine SIRS Criteria: 2 or more of the following may indicate SIRS Temperature < 96.8F (36C) or > 101.0F (38.3C) Heart Rate > 90 bpm Respiratory Rate > 20 breaths/min or PaCO2 < 32 mmHg White Blood Cell Count > 12,000 or < 4,000 cells/mm3 or > 10% bands Documented 03/08 in DCS Addendum : SIRS present on admission, resolved. (Template Last Reviewed: October 2022) SONALI
[2024-03-07 16:05] VITALS: BMI 32.2
[2024-03-07 17:23] LABS: Glucose,Whole Blood 133 mg/dL (70-110)
--- NOTE | 2024-03-07 17:41 | P.PN ---
Subjective Progress Note Date: 03/07/24 the patient states he feels better. He has had less drainage and pain in the area of his right gluteal abscess. On exam vital signs appear stable. Examination of the right gluteus shows decrease in inflammation and cellulitis. Right gluteal abscess related to possible perirectal abscess. Patient will receive IV antibiotics. Objective - Vital Signs Vital signs: Vital Signs Temp 98 F 03/07/24 12:45 Pulse 68 03/07/24 12:45 Resp 17 03/07/24 12:45 BP 135/88 03/07/24 12:45 Pulse Ox 98 03/07/24 12:45 FiO2 Intake & Output 03/06/24 03/07/24 03/07/24 18:59 06:59 18:59 Intake Total 480 Balance 480 Weight 117.027 kg Intake: Oral 480 Other: Voiding Method Toilet # Voids 3 3 2 - Labs CBC & Chem 7: 03/07/24 04:46 03/07/24 04:46 Labs: Abnormal Lab Results - Last 24 Hours (Table) 03/06/24 03/07/24 03/07/24 Range/Units 20:47 04:46 04:46 WBC 10.70 H (4.50-10.00) X 10*3/uL Immature Gran # 0.05 H (0.00-0.04) X 10*3/uL Neutrophils # 7.76 H (1.80-7.70) X 10*3/uL Monocytes # 1.01 H (0.20-1.00) X 10*3/uL BUN 5 L (9-20) mg/dL Glucose 122 H (74-99) mg/dL POC Glucose (mg/dL) 226 H (70-110) mg/dL 03/07/24 03/07/24 03/07/24 Range/Units 07:13 11:50 17:22 WBC (4.50-10.00) X 10*3/uL Immature Gran # (0.00-0.04) X 10*3/uL Neutrophils # (1.80-7.70) X 10*3/uL Monocytes # (0.20-1.00) X 10*3/uL BUN (9-20) mg/dL Glucose (74-99) mg/dL POC Glucose (mg/dL) 118 H 147 H 133 H (70-110) mg/dL Microbiology - Last 24 Hours (Table) 03/04/24 11:40 Blood Culture - Preliminary Blood 03/04/24 11:20 Blood Culture - Preliminary Blood 03/04/24 16:49 Gram Stain - Final Groin Wound Culture - Final Strep agalactiae - (group b)
[2024-03-07 20:05] LABS: Glucose,Whole Blood 145 mg/dL (70-110)
[2024-03-08 06:58] LABS: Glucose,Whole Blood 107 mg/dL (70-110)
[2024-03-08 07:35] VITALS: RESP 16
[2024-03-08 12:25] LABS: Glucose,Whole Blood 121 mg/dL (70-110)
[2024-03-08 12:33] VITALS: BP 137/86; PULSE 63; TEMP 98.1
--- NOTE | 2024-03-08 14:45 | P.PN ---
Subjective Progress Note Date: 03/08/24 patient states he feels better. He states his swelling and pain have decreased. On exam there is decreased cellulitis of the gluteal area. There is less induration. Resolving gluteal abscess. Patient continue receive IV antibiotics. Objective - Vital Signs Vital signs: Vital Signs Temp 98.1 F 03/08/24 12:11 Pulse 63 03/08/24 12:11 Resp 16 03/08/24 12:11 BP 137/86 03/08/24 12:11 Pulse Ox 96 03/08/24 12:11 FiO2 Intake & Output 03/07/24 03/08/24 03/08/24 18:59 06:59 18:59 Weight 117.027 kg Other: # Voids 2 2 - Labs CBC & Chem 7: 03/07/24 04:46 03/07/24 04:46 Labs: Abnormal Lab Results - Last 24 Hours (Table) 03/07/24 03/07/24 03/08/24 Range/Units 17:22 20:03 12:13 POC Glucose (mg/dL) 133 H 145 H 121 H (70-110) mg/dL Microbiology - Last 24 Hours (Table) 03/04/24 16:49 Anaerobic Culture - Preliminary Groin Anaerobic Gm Negative Bacilli 03/04/24 11:40 Blood Culture - Preliminary Blood 03/04/24 11:20 Blood Culture - Preliminary Blood
--- NOTE | 2024-03-08 15:52 | P.PN ---
Subjective Progress Note Date: 03/06/24 Principal diagnosis: Reason for follow-up is right groin abscess Patient is a 38-year-old male with a past medical history of again for diabetes melitis presenting to the hospital with right groin swelling induration that has been draining outpatient by the PCP failed respond to the oral Bactrim DS. On today's evaluation that is 03/06/2024, patient has been afebrile, patient is breathing comfortably and is currently on room air, patient denies having any significant cough no chest pain shortness of breath, patient denies nausea vomiting or diarrhea and no abdominal pain still complains of pain to the right groin area did have some drainage Patient white count normalized to 9.76 creatinine 0.8 culture with Streptococcus agalactiae Objective - Vital Signs Vital signs: Vital Signs Temp 98.3 F 03/06/24 14:18 Pulse 74 03/06/24 14:18 Resp 20 03/06/24 14:18 BP 136/72 03/06/24 14:18 Pulse Ox 97 03/06/24 14:18 FiO2 Intake & Output 03/05/24 03/06/24 03/06/24 18:59 06:59 18:59 Intake Total 1400 Balance 1400 Intake: Intake, IV Titration 900 Amount Ampicillin-Sulbactam 3 gm 200 In Sodium Chloride 0.9% 100 ml @ 200 mls/hr IVPB Q6HR YUSEF Rx#:[id number] Sodium Chloride 0.9% 1, 600 000 ml @ 70 mls/hr IV . [id number] Rx#:[id number] Vancomycin 1,750 mg In 100 Sodium Chloride 0.9% 500 ml 500 ml @ 167 mls/hr IVPB Q8H YUSEF Rx#: [id number] Oral 500 Other: Voiding Method Toilet # Voids 2 3 - Exam GENERAL DESCRIPTION: Middle-age male lying in bed in no distress RESPIRATORY SYSTEM: Unlabored breathing , decreased breath sounds at bases HEART: S1 S2 regular rate and rhythm , ABDOMEN: Soft , no tenderness Right groin did have an area of induration swelling and redness and some purulen t drainage EXTREMITIES: No edema feet - Labs CBC & Chem 7: 03/07/24 04:46 03/07/24 04:46 Labs: Abnormal Lab Results - Last 24 Hours (Table) 03/05/24 03/05/2424 Range/Units 17:04 19:48 05:13 Monocytes # 1.14 H (0.20-1.00) X 10*3/uL BUN (9.0-27.0) mg/dL BUN/Creatinine Ratio (12.00-20.00) Ratio Glucose (70-110) mg/dL POC Glucose (mg/dL) 234 H 231 H (70-110) mg/dL AST (14-35) U/L Total Protein (6.2-8.2) g/dL Albumin (3.8-4.9) g/dL 03/06/24 03/06/24 03/06/24 Range/Units 05:13 07:16 11:58 Monocytes # (0.20-1.00) X 10*3/uL BUN 6.6 L (9.0-27.0) mg/dL BUN/Creatinine Ratio 8.25 L (12.00-20.00) Ratio Glucose 121 H (70-110) mg/dL POC Glucose (mg/dL) 123 H 145 H (70-110) mg/dL AST 13 L (14-35) U/L Total Protein 5.3 L (6.2-8.2) g/dL Albumin 3.5 L (3.8-4.9) g/dL Microbiology - Last 24 Hours (Table) 03/04/24 16:49 Wound Culture - Preliminary Groin Strep agalactiae - (group b) 03/04/24 11:40 Blood Culture - Preliminary Blood 03/04/24 11:20 Blood Culture - Preliminary Blood Assessment and Plan (1) Abscess of right groin Status: Acute Code(s): L02.214 - CUTANEOUS ABSCESS OF GROIN SNOMED Code(s): 66188377 Plan: 1patient with right groin abscess that has been drained by the PCP and failed to respond to the outpatient Bactrim DS therapy patient did have a CT with evidence of small abscess to the right groin area will need to cover for resistant gram-positive such as MRSA to be the likely pathogen, gram-negative infection not entirely excluded 2-patient has been advised by surgery recommending no drainage 3-local culture growing Streptococcus 4-patient to continue with the vancomycin and Unasyn while waiting for the culture to finalize Dictation was produced using dragon dictation software. please excuse any grammatical, word or spelling errors. Time with Patient: Less than 30
--- NOTE | 2024-03-08 15:53 | P.PN ---
Subjective Progress Note Date: 03/07/24 Principal diagnosis: Reason for follow-up is right groin abscess Patient is a 38-year-old male with a past medical history of again for diabetes melitis presenting to the hospital with right groin swelling induration that has been draining outpatient by the PCP failed respond to the oral Bactrim DS. On today's evaluation that is 03/07/2024,the patient denies any fever or any chills, patient is breathing comfortably on room air, the patient denies chest pain shortness of breath and no significant cough, patient denies abdominal pain, no nausea vomiting or diarrhea. Pain to the right groin area Patient white count is 10.70, creatinine 0.70 Objective - Vital Signs Vital signs: Vital Signs Temp 99.0 F 03/07/24 19:17 Pulse 74 03/07/24 19:17 Resp 20 03/07/24 19:17 BP 153/87 03/07/24 19:17 Pulse Ox 96 03/07/24 19:17 FiO2 Intake & Output 03/07/24 03/07/24 03/08/24 06:59 18:59 06:59 Intake Total 480 Balance 480 Weight 117.027 kg Intake: Oral 480 Other: Voiding Method Toilet # Voids 3 2 - Exam GENERAL DESCRIPTION: Middle-age male lying in bed in no distress RESPIRATORY SYSTEM: Unlabored breathing , decreased breath sounds at bases HEART: S1 S2 regular rate and rhythm , ABDOMEN: Soft , no tenderness Right groin did have an area of induration swelling and redness and some pu rulent drainage EXTREMITIES: No edema feet - Labs CBC & Chem 7: 03/07/24 04:46 03/07/24 04:46 Labs: Abnormal Lab Results - Last 24 Hours (Table) 03/07/24 03/07/24 03/07/24 Range/Units 04:46 04:46 07:13 WBC 10.70 H (4.50-10.00) X 10*3/uL Immature Gran # 0.05 H (0.00-0.04) X 10*3/uL Neutrophils # 7.76 H (1.80-7.70) X 10*3/uL Monocytes # 1.01 H (0.20-1.00) X 10*3/uL BUN 5 L (9-20) mg/dL Glucose 122 H (74-99) mg/dL POC Glucose (mg/dL) 118 H (70-110) mg/dL 03/07/24 03/07/24 03/07/24 Range/Units 11:50 17:22 20:03 WBC (4.50-10.00) X 10*3/uL Immature Gran # (0.00-0.04) X 10*3/uL Neutrophils # (1.80-7.70) X 10*3/uL Monocytes # (0.20-1.00) X 10*3/uL BUN (9-20) mg/dL Glucose (74-99) mg/dL POC Glucose (mg/dL) 147 H 133 H 145 H (70-110) mg/dL Microbiology - Last 24 Hours (Table) 03/04/24 11:40 Blood Culture - Preliminary Blood 03/04/24 11:20 Blood Culture - Preliminary Blood 03/04/24 16:49 Gram Stain - Final Groin Wound Culture - Final Strep agalactiae - (group b) Assessment and Plan (1) Abscess of right groin Status: Acute Code(s): L02.214 - CUTANEOUS ABSCESS OF GROIN SNOMED Code(s): 36222236 Plan: 1patient with right groin abscess that has been drained by the PCP and failed to respond to the outpatient Bactrim DS therapy patient did have a CT with evidence of small abscess to the right groin area will need to cover for resistant gram-positive such as MRSA to be the likely pathogen, gram-negative infection not entirely excluded 2-patient has been advised by surgery recommending no drainage 3-local culture growing Streptococcus 4-vancomycin has been discontinued continue with Unasyn will benefit from a sh ort course of IV antibiotic on discharge because of extensive infection is high risk of failure of oral antibiotic at this point Dictation was produced using [employer], Mobile [employer] dictation software. please excuse any grammatical, word or spelling errors. Time with Patient: Less than 30
--- NOTE | 2024-03-08 15:54 | P.PN ---
Subjective Progress Note Date: 03/08/24 Principal diagnosis: Reason for follow-up is right groin abscess Patient is a 38-year-old male with a past medical history of again for diabetes melitis presenting to the hospital with right groin swelling induration that has been draining outpatient by the PCP failed respond to the oral Bactrim DS. On today's evaluation that is 03/08/2024,the patient remains to be afebrile, patient is on room air not requiring supplemental oxygen and denies any shortness of breath no chest pain or cough.Patient denies having any nausea or vomiting, no abdominal pain and no diarrhea has been reported patient to have drainage from the right groin area swelling Decreased No lab draw today local cultures also showing anaerobe from negative bacilli Objective - Vital Signs Vital signs: Vital Signs Temp 98.4 F 03/08/24 06:56 Pulse 59 L 03/08/24 06:56 Resp 16 03/08/24 06:56 BP 129/75 03/08/24 06:56 Pulse Ox 96 03/08/24 06:56 FiO2 Intake & Output 03/07/24 03/08/24 03/08/24 18:59 06:59 18:59 Weight 117.027 kg Other: # Voids 2 2 - Exam GENERAL DESCRIPTION: Middle-age male lying in bed in no distress RESPIRATORY SYSTEM: Unlabored breathing , decreased breath sounds at bases HEART: S1 S2 regular rate and rhythm , ABDOMEN: Soft , no tenderness Right groin did have an area of induration swelling and redness and some pur ulent drainage EXTREMITIES: No edema feet - Labs CBC & Chem 7: 03/07/24 04:46 03/07/24 04:46 Labs: Abnormal Lab Results - Last 24 Hours (Table) 03/07/24 03/07/24 03/07/24 Range/Units 11:50 17:22 20:03 POC Glucose (mg/dL) 147 H 133 H 145 H (70-110) mg/dL Microbiology - Last 24 Hours (Table) 03/04/24 16:49 Anaerobic Culture - Preliminary Groin Anaerobic Gm Negative Bacilli 03/04/24 11:40 Blood Culture - Preliminary Blood 03/04/24 11:20 Blood Culture - Preliminary Blood Assessment and Plan (1) Abscess of right groin Status: Acute Code(s): L02.214 - CUTANEOUS ABSCESS OF GROIN SNOMED Code(s): 49140074 Plan: 1patient with right groin abscess that has been drained by the PCP and failed to respond to the outpatient Bactrim DS therapy patient did have a CT with evidence of small abscess to the right groin area will need to cover for resistant gram-positive such as MRSA to be the likely pathogen, gram-negative infection not entirely excluded 2-patient has been advised by surgery recommending no drainage 3-local culture growing Streptococcus as well as anaerobic gram-negative bacilli 4-patient did got midline we will discontinue Unasyn given a dose of Rocephin 2 g x 1 patient will start cefazolin 2 g great hour as of tomorrow and also oral Flagyl 500 mg every 8 hours prescription was sent to the pharmacy discussed with admitting team Dictation was produced using [employer] dictation software. please excuse any gr ammatical, word or spelling errors. Time with Patient: Less than 30
--- NOTE | 2024-03-09 09:24 | CDI ---
Documentation Clarification Form Date: 03/09/2024 09:01:46 AM From: Annemarie Sandoval Admit Date: 03/04/2024 02:23:00 PM Patient Name: Jc Araya Visit Number: [id number] Discharge Date: 03/08/2024 03:13:00 PM ATTENTION: The Clinical Documentation Specialists (CDI) and [facility] Coding Staff appreciate your assistance in clarifying documentation. Please respond to the clarification below the line at the bottom and electronically sign. The CDI & [facility] Coding staff will review the response and follow-up if needed. Please note: Queries are made part of the Legal Health Record. If you have any questions, please contact the author of this message via ITS. Dr. Messi Zuniga Patient has perineal cellulitis and abscess and also has uncontrolled DM Type II, documented throughout the chart. Please clarify if there is a relationship between cellulitis/abscess and diabetes type II History/Risk Factors: Abscess buttock, inguinal abscess, perineal cellulitis and abscess. Diabetes uncontrolled type II. Clinical Indicators: Day of admit WBC's 18.8 Glucose 297 Treatment: Insulin and Vancomycin Please clarify the relationship, if any, which is clinically appropriate for this patient: [ x ] Perineal Cellulits/abscess is due to DM Type II uncontrolled [ ] Perineal Cellulitis/abscess is not due to DM type II uncontrolled. [ ] Other explanation of clinical findings (please specify) [ ] Unable to determine (no explanation for clinical findings) MTDD
--- NOTE | 2024-03-10 12:02 | P.DS ---
Providers Date of admission: 03/04/24 14:23 Expected date of discharge: 03/08/24 Attending physician: Young Del Valle MD Consults: 03/04/24 13:37 Consult Physician Urgent Consulting Provider: Edson Morgan Consult Reason/Comments: abscess right gluteal region Do you want consulting provider notified?: Yes Consult Physician Urgent Consulting Provider: Luis Miguel Consult Reason/Comments: celullitis of right gluteal region Do you want consulting provider notified?: Yes Primary care physician: Allison Salinas Hospital Course: Final Diagnoses: Right groin abscess, failed outpatient I&D/antibiotics. Wound culture reporting Streptococcus, anaerobic gram-negative bacilli Diabetes mellitus type II, hyperglycemic, better controlled, A1c 11.5, further diabetic education outpatient in clinic with PCP Morbid obesity, BMI 32 Hyponatremia, resolved Ongoing nicotine dependence Hospital course:This a 38-year-old gentleman admitted with right groin abscess, diabetes mellitus, failed outpatient treatment. Evaluated by infectious disease and placed currently on vancomycin and Unasyn, creatinine 0.7. Wound culture finalized, reporting strep agalactiae,-group B. Evaluated by surgery with no surgical intervention recommended. Continues to have some induration with inflammation, tenderness-reports "sore with pale yellow drainage." Alternating ice and heat compresses. positive diet intake, denies nausea vomiting diarrhea or abdominal pain. Minimal nausea yesterday, resolved. Denies chills or sweats. Afebrile, WBC 10.7. Blood sugars better controlled Evaluated by surgery with no surgical intervention recommended at this time. Continue wound care and antibiotics as per ID.wound culture finalized, discharge planning in progress clearance and final DC antibiotics per ID. Smoking sensation reinforced. Local culture reporting Streptococcus, anaerobic gram-negative bacilli. Midline placed. Antibiotics further adjusted per ID with Unasyn discontinued, Rocephin initiated along with oral Flagyl. Significant clinical improvement. Cleared by infectious disease for discharge. Patient will be discharged home today in a stable condition with guarded prognosis; Kefzol and Flagyl at discharge as per ID. The impression and plan of care has been dictated as directed. : I performed a history and examination of this patient, discussed the same with the dictator. I agree with the dictator's note ,documented as a scribe. Any additional findings or plans will be noted. Patient Condition at Discharge: Stable Plan - Discharge Summary Discharge Rx Participant: No New Discharge Prescriptions: New ceFAZolin [Kefzol] 2 gm IVP Q8HR 14 Days each HYDROcodone/APAP 5-325MG [[place] 5-325] 1 each PO Q6HR PRN #12 tab PRN Reason: Pain Insulin Glargine,Hum.rec.anlog [Lantus Solostar Pen] 15 units SQ BID #2 each metroNIDAZOLE [Flagyl] 500 mg PO TID #42 tab Changed Ibuprofen [Motrin Ib] 400 mg PO Q6H PRN #0 PRN Reason: Pain Discontinued Sulfamethoxazole/Trimethoprim [Bactrim DS 800-160 mg] 1 tab PO BID Discharge Medication List HYDROcodone/APAP 5-325MG [[place] 5-325] 1 each PO Q6HR PRN #12 tab 03/08/24 [Rx] Ibuprofen [Motrin Ib] 400 mg PO Q6H PRN #0 03/08/24 [Rx] Insulin Glargine,Hum.rec.anlog [Lantus Solostar Pen] 15 units SQ BID #2 each 03/08/24 [Rx] ceFAZolin [Kefzol] 2 gm IVP Q8HR 14 Days each 03/08/24 [Rx] metroNIDAZOLE [Flagyl] 500 mg PO TID #42 tab 03/08/24 [Rx] Follow up Appointment(s)/Referral(s): Young Del Valle MD [STAFF PHYSICIAN] - 03/11/24 11:30 am (in the [place] office) [facility],Infusion [NON-STAFF] - 03/09/24 8:30 am ([address] [employer] [employer]: Go to office, will provide medications/supplies and provide instructions. Return 1 time a week for blood draw, dressing changes, and more supplies and medications ) Luis Miguel MD [STAFF PHYSICIAN] - 1 Week (please call the office to schedule a follow up appointment) Activity/Diet/Wound Care/Special Instructions: Glucometer, supplies Accu-Cheks before meals and at bedtime, maintain log and take to follow-up visit with PCP for further recommendations Discharge Disposition: HOME SELF-CARE
== END 2024-03-08 15:13 | disposition home or self-care (01) | DRG 638 ==
LOC: EC 09:23 → 4SSUR 14:23 → 5NMEDONC 03-05 06:39
PROVIDERS: ADMIT Family Medicine; ATTEND Family Medicine
PROC: 05HC33Z Insertion of Infusion Device into Left Basilic Vein, Percutaneous Approach (ICD-10-PCS; principal; 2024-03-08 11:35)
DX: E11.628 Type 2 diabetes mellitus with other skin complications (principal); E87.1 Hypo-osmolality and hyponatremia; L02.215 Cutaneous abscess of perineum; K61.1 Rectal abscess; L02.31 Cutaneous abscess of buttock; L03.317 Cellulitis of buttock; L02.214 Cutaneous abscess of groin; L03.315 Cellulitis of perineum; Z68.32 Body mass index [BMI] 32.0-32.9, adult; E66.01 Morbid (severe) obesity due to excess calories; E11.65 Type 2 diabetes mellitus with hyperglycemia; Z87.891 Personal history of nicotine dependence
CPT/HCPCS: 36410; 36415; 72192; 76937; 80048; 80053; 80202; 83036; 85025; 87040; 87070; 87075; 87205; 96365; 96375; 99291